=== PATIENT | male | born 1980 | race Hispanic/Latino ===

== ENCOUNTER 2024-02-27 09:37 | Emergency (ER) | payer OTHER ==
[~2024-02-27] VITALS: Ht 167.6 cm; Wt 70.3 kg
--- NOTE | 2024-02-27 09:58 | ERN ---
ED Note History of Present Illness Stated Complaint: BODYACHES Chief Complaint: Generalized Body Aches Time Seen by MD: 09:41 Dictation: Patient is a 42-year-old male with past medical history of diabetes came to the ED with a chief complaint of fever, body aches, nausea, mild cough, headaches since this morning. Patient also informs about mild trouble breathing and he took Tylenol this morning. Allergies: Coded Allergies: No Known Drug Allergies (Unverified Allergy, Unknown, 02/27/24) Past Medical History Past Medical History: Diabetes-Type II Surgical History: Other Surgical History Other: 2 HERNIA REPAIRS, LEFT WRIST SX Review of System Dictation Constitutional-no chills, weight loss/gain. Patient has fever, body aches Eyes-no injury, pain, redness and discharge ENT-no injury, pain, swelling Cardiovascular no chest pain, palpitations, edema Respiratory patient has mild shortness of breath, cough Abdomen/GI-no abdominal pain, diarrhea, constipation, vomiting, . Patient has nausea Back no injury and pain Genitourinary no injury, bleeding and discharge Musculoskeletal/extremities no injury, deformity Skin no rash, discoloration Neuro-no weakness, numbness, tingling, seizures, tremors. Patient has headaches Psych-no suicidal ideation, homicidal ideation, hallucinations, depression, anxiety, memory loss Initial Vital Sign VS Vital Signs Date Time Temp Pulse Resp B/P (MAP) Pulse Ox O2 Delivery O2 Flow Rate FiO2 02/27/24 09:41 98.1 114 16 140/89 96 Room Air 0 02/27/24 09:41 21 Physical Exam Dictation VITAL SIGNS: Reviewed. GENERAL APPEARANCE: Alert, oriented x3, no acute distress, obese. HEAD AND FACE: Non-traumatic. EYES: PERRL, pink conjunctivas, eyelid no trauma, anterior chamber clear. EARS: Pinnas intact and no signs of trauma or erythema. Ear canals clear and no discharge. TMs erythema. NOSE: No discharge, no bleeding. Right nasal turbinate swelling OROPHARYNX: Mouth normal, teeth no caries, tongue pink. Pharynx clear, erythema. Tonsils no exudates, no abscesses noted. Mucous membrane moist. NECK: Supple, non-tender, no thyromegaly, no masses, no JVD, no bruits. BREAST: Deferred. CHEST: No tenderness, no crepitus, no paradoxical movement, no retractions. LUNGS: Clear, well-ventilated, symmetric, no rales, no wheezing, no rhonchi, no stridor, good breath sounds bilaterally. HEART: Regular rate, regular rhythm, no murmur, no gallops. VASCULAR: No peripheral edema. ABDOMEN: Soft, positive bowel sounds, nondistended, no guarding, nontender, no rebound, no masses no hepatomegaly, no splenomegaly, no Bartlett's sign, no hernias. RECTAL: Deferred. GENITAL: Deferred. NEUROLOGICAL: Normal speech, gross motor function intact, gross sensory function intact. MUSCULOSKELETAL: Neck nontender, full range of motion, back nontender, full range of motion. EXTREMITIES: Nontender, full range of motion. SKIN: Color pink, dry, no turgor, no rash, no lacerations, no abrasions, no contusions. LYMPHATICS: Deferred. Results (Laboratory/Radiology) Laboratory/Radiology Laboratory Tests Test 02/27/24 09:55 Influenza Type A Antigen NEGATIVE FOR TYPE A Influenza Type B Antigen NEGATIVE FOR TYPE B SARS-CoV-2 Antigen (Rapid) PRESUMPTIVE NEGATIVE ED Course ED Course Orders Procedure Category Date Status Time Influenza Type A & B, LAB 02/27/24 Complete Rapid 09:52 Covid19 (Sars Antigen LAB 02/27/24 Complete Rapid) 09:52 Acetaminophen 500mg PHA 02/27/24 Complete Tab (Tylenol 500mg T 10:30 Current Medications Medications (Trade) Dose Ordered Sig/Libby Route PRN Reason Start Time Stop Time Status Last Admin Dose Admin Acetaminophen (TYLenol 500MG TAB) 1,000 mg ONCE ONCE PO 02/27/24 10:30 02/27/24 10:31 DC 02/27/24 10:39 Vital Signs Date Time Temp Pulse Resp B/P (MAP) Pulse Ox O2 Delivery O2 Flow Rate FiO2 02/27/24 10:39 100.4 02/27/24 09:52 99.9 115 20 132/85 95 Room Air* 0 21 02/27/24 09:41 98.1 114 16 140/89 98 Room Air* 0 21 02/27/24 09:41 98.1 114 16 140/89 96 Room Air 0 Medical Decision Making MDM INITIAL IMPRESSION Initial history and physical concerning for upper respiratory tract infection, sinusitis Contributing medical problems: I have reviewed the triage nursing notes and vital signs. Initial plan: Laboratory evaluation and x-ray DATA REVIEW I have reviewed additional NN, repeat VS, and monitoring where indicated. Heart rate, blood pressure, and O2 saturation are acceptable. [place]ley diagnostic results: Other independent historian: Review of external data: ED COURSE Interventions: Reassessment: DISPOSITION Final diagnostic impression: I discussed my findings, clinical impression and treatment recommendations with the patient. I have reviewed the social factors contributing to the patient's presentation and disposition planning. My final plan for disposition was made based upon -mild risk of complications and potential morbidity of the patient's condition. -Discussion with the patient regarding management options. [home] DX & DISP Disposition: Discharge Departure Impression: Primary Impression: Sinusitis Condition: Stable Scripts Fluticasone Propionate (Flonase Nasal Marine) 50 Mcg/Actuation Marine 2 SPRAY NS DAILY, #16 GM 0 Refills Prov: NATALIIA ACOSTA MD 02/27/24 Amoxicillin/Potassium Clav (Amox Tr-K Clv 875-125 mg Tab) 875 Mg-125 Mg Tablet 1 TAB PO BID for 10 Days, #20 TAB 0 Refills Prov: NATALIIA ACOSTA MD 02/27/24 Additional Instructions: FOLLOW-UP WITH PRIMARY CARE PROVIDER IN 1 TO 2 DAYS. TAKE MEDICATIONS DIRECTED HERE IN THE EMERGENCY ROOM. OKAY TO CONTINUE HOME MEDICATIONS UNLESS OTHERWISE DISCUSSED DURING YOUR VISIT IN THE EMERGENCY ROOM TODAY. RETURN TO YOUR NEAREST EMERGENCY ROOM IF SYMPTOMS WORSEN OR IF THERE IS NO IMPROVEMENT. CALL 911 IF YOU NEED IMMEDIATE ASSISTANCE. TAKE TYLENOL [id number] NEEDED AND IF NO CONTRAINDICATIONS ARE PRESENT. INCREASE ORAL HYDRATION. A WOUND CULTURE OR URINE CULTURE WAS ORDERED HERE IN THE EMERGENCY ROOM DEPARTMENT PLEASE FOLLOW-UP WITH PRIMARY CARE PROVIDER AND ADVISE THEM TO GET REPEAT PORTS FROM OUR FACILITY. IF YOU HAD ANY EVAN WRAP/SPLINTS THAT WERE APPLIED HERE, PLEASE DO NOT REMOVE THEM UNTIL YOU SEE YOUR PRIMARY CARE OR SPECIALTY. Referrals: Time of Disposition: 11:19 I WAS PRESENT AND PARTICIPATED IN THE CARE OF THIS PATIENT ALONGSIDE WITH THE RESIDENT PHYSICIAN. I HAVE REVIEWED AND PERSONALLY MADE AND APPROVED THE MANAGEMENT PLAN THAT IS DOCUMENTED IN THE NOTE BY MYSELF WITH THE RESIDENT PHYSICIAN. I ACKNOWLEDGED FOR RESPONSIBILITY FOR THE PATIENT'S MANAGEMENT PLAN. BRYANT RESENDIZ MD Feb 27, 2024 09:58 NATALIIA ACOSTA MD Feb 27, 2024 11:20
[2024-02-27] MEDS: acetaMINOPHEN 500 MG TABLET PO ONE (10:39)
[2024-02-27 11:07] LABS: COVID19 (SARS ANTIGEN RAPID) PRESUMPTIVE NEGATIVE (NEGATIVE); INFLUENZA TYPE A NEGATIVE FOR TYPE A (NEGATIVE); INFLUENZA TYPE B NEGATIVE FOR TYPE B (NEGATIVE)
[2024-02-27 11:18] VITALS: TEMP 99.8
[2024-02-27] MEDS: dexaMETHasone SOD PHOSPHATE 4 MG/ML 1ML VIAL IM ONE (11:19)
[2024-02-27] MEDS: ketOROlac 30MG VIAL (30MG/ML) IM ONE (11:20)
[2024-02-27] MEDS ORDERED: AMOX1TAB16 PO (11:20)
[2024-02-27] MEDS ORDERED: FLUT16H NS (11:20)
[2024-02-27 11:28] VITALS: BP 125/81; PULSE 98; RESP 18; TEMP 99; O2SAT 96
== END 2024-02-27 11:55 | disposition home or self-care (01) ==
LOC: EDH 09:37
DX: J32.9 Chronic sinusitis, unspecified (principal); E11.9 Type 2 diabetes mellitus without complications; Z20.822 Contact with and (suspected) exposure to COVID-19
CPT/HCPCS: 99284; 87426; 87804 ×2; 96372 ×2; J1100; J1885